=== PATIENT | male | born 1990 | race Caucasian/White ===

== ENCOUNTER 2017-11-30 18:38 | Emergency (ER) | payer OTHER ==
[~2017-11-30] VITALS: Ht 170.2 cm; Wt 134.2 kg
[2017-11-30 18:40] VITALS: BP 149/65; PULSE 82; RESP 16; TEMP 98.6; O2SAT 98
[2017-11-30] MEDS ORDERED: PARO30TA2 PO (18:55)
[2017-11-30] MEDS ORDERED: DEPA500T PO (18:55)
[2017-11-30] MEDS ORDERED: LEVO175T2 PO (18:55)
--- NOTE | 2017-11-30 19:03 | PD ---
HPI Chief Complaint: ENT Complaint Time Seen by Provider: 18:55 Travel History International Travel<30 days: No Contact w/Intl Traveler<30days: No Traveled to known affect area: No History of Present Illness HPI 27-year-old male with autism presents emergency department for evaluation of left ear pain that started a few days ago. Says that the left ear is aching and worse when he sleeps on it. The pain is nonradiating and mild in severity. Mother says that she tried to clean his ear and use Q-tips today without success. Says he is also had some popping whenever he opens and closes his jaw. He denies her upper respiratory type of symptoms. PFSH Past Medical History Hx Anticoagulant Therapy: No Diabetes: No Diminished Hearing: No Psychiatric: Yes (autism) Immunizations Current: Yes Tetanus Vaccination: < 5 Years Influenza Vaccination: No Past Surgical History Cholecystectomy: Yes Social History Alcohol Use: No Tobacco Use: No Substance Use: No Allergies-Medications (Allergen,Severity, Reaction): Coded Allergies: amoxicillin (Verified Allergy, Unknown, rash, 11/30/17) clavulanic acid (Verified Allergy, Unknown, rash, 11/30/17) Reported Meds & Prescriptions Reported Meds & Active Scripts Active Reported Depakote DR (Divalproex Sodium) 500 Mg Tabdr 1,500 Mg PO DAILY Paroxetine (Paroxetine HCl) 30 Mg Tab 30 Mg PO DAILY Levothyroxine (Levothyroxine Sodium) 175 Mcg Tab 175 Mcg PO DAILY Review of Systems Except as stated in HPI: all other systems reviewed are Neg Physical Exam Narrative GENERAL: Well-nourished, well-developed patient, in NAD SKIN: Focused skin assessment warm/dry. No rashes or lesions. HEAD: Normocephalic. Atraumatic. EYES: No scleral icterus. No injection or drainage. PERRLA, EOMI No clicking or popping with range of motion of the jaw. Left tympanic membrane occluded by cerumen prior to irrigation. After irrigation tympanic membrane pearly felipe without bulging or erythema. THROAT: No pharyngeal injection, exudates, or tonsillar hypertrophy. Airway is patent. NECK: Supple, trachea midline. No JVD or lymphadenopathy. No meningismus. CARDIOVASCULAR: Regular rate and rhythm without murmurs, gallops, or rubs. RESPIRATORY: Breath sounds equal bilaterally. No accessory muscle use. No wheezes, rales, or rhonchi MUSCULOSKELETAL: No cyanosis, or edema. BACK: Nontender without obvious deformity. No CVA tenderness. Data Data Last Documented VS Vital Signs Date Time Temp Pulse Resp B/P (MAP) Pulse Ox O2 Delivery O2 Flow Rate FiO2 11/30/17 18:40 98.6 82 16 149/65 (93) 98 Orders Orders Ear Irrigation (11/30/17 19:00) Ed Discharge Order (11/30/17 19:35) [facility] Medical Decision Making Medical Screen Exam Complete: Yes Emergency Medical Condition: Yes Differential Diagnosis Left cerumen impaction, otitis media, acute otitis externa, tinnitus Narrative Course 27-year-old male with autism presents emergency department for evaluation of left ear pain that started a few days ago. Says that the left ear is aching and worse when he sleeps on it. The pain is nonradiating and mild in severity. Mother says that she tried to clean his ear and use Q-tips today without success. Says he is also had some popping whenever he opens and closes his jaw. He denies her upper respiratory type of symptoms. The exam findings consistent with cerumen impaction bilateral ears. The left ear appears to be more impacted and is apparently more symptomatic than the right. Ear irrigation performed with complete disimpaction. No underlying abnormality. Advised to use OTC debrox for chronic cerumen impaction. Patient has apparently had cerumen impaction multiple times previously requiring irrigation. Patient symptoms are completely relieved after the irrigation. Advised to consider follow-up with an nuclear licensing engineer if he continues to have this issue. Diagnosis Primary Impression: Impacted cerumen of left ear Referrals: Ear / Nose / Throat Specialist Additional Instructions: I recommend using Debrox which is [id number] for the earwax. Avoid using Q-tips to avoid repeat impaction of the earwax. Consider follow-up with an nuclear licensing engineer for maintenance of the earwax. Disposition: 01 DISCHARGE HOME Condition: Stable Alexa Hadley Nov 30, 2017 19:03
== END 2017-11-30 19:43 | disposition home or self-care (01) ==
LOC: PHEFT 18:38
DX: H61.22 Impacted cerumen, left ear (principal); F84.0 Autistic disorder; Z79.899 Other long term (current) drug therapy
CPT/HCPCS: 99283